=== PATIENT | female | born 1995 | race African-American/Black ===

== ENCOUNTER 2021-09-13 13:31 | Day surgery (SDC) | payer BC ==
[2021-09-11 10:14] VITALS: BMI 27.4
[2021-09-13 13:46] VITALS: BP 144/90; PULSE 80; TEMP 97.3
== END 2021-09-13 14:35 | disposition home or self-care (01) ==
LOC: EDSEX → FASU-ENDO 13:31
PROVIDERS: ATTEND Internal Medicine Gastroenterology
PROC: 0DJD8ZZ Inspection of Lower Intestinal Tract, Via Natural or Artificial Opening Endoscopic (ICD-10-PCS; principal; 2021-09-13)
DX: Z53.09 Procedure and treatment not carried out because of other contraindication (principal)
CPT/HCPCS: 84703